=== PATIENT | female | born 2000 | race Asian ===

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

== ENCOUNTER → 2020-11-21 09:27 | Emergency (ER) | payer OTHER | END | disposition left against medical advice (07) | LOC: ER 09:27 | DX: R06.02 Shortness of breath (principal); Z53.21 Procedure and treatment not carried out due to patient leaving prior to being seen by health care provider | CPT/HCPCS: 93005 ==